=== PATIENT | male | born 1975 | race African-American/Black ===

== ENCOUNTER 2017-05-06 11:33 | Emergency (ER) | payer OTHER, MEDICAID ==
[~2017-05-06] VITALS: Ht 185.4 cm; Wt 84.4 kg
[2017-05-06] MEDS ORDERED: CYCLOBENZAPRINE10 MG PO (12:10)
[2017-05-06] MEDS ORDERED: WELLBUTRIN XL150 MG PO (12:11)
[2017-05-06] MEDS ORDERED: MEDROL4 MG PO (14:03)
[2017-05-06] MEDS ORDERED: NAPROSYN500 MG PO (14:03)
== END 2017-05-06 14:21 | disposition home or self-care (01) ==
LOC: ED 11:33
DX: M50.922 Unspecified cervical disc disorder at C5-C6 level (principal); F32.9 Major depressive disorder, single episode, unspecified; F17.200 Nicotine dependence, unspecified, uncomplicated; Z79.899 Other long term (current) drug therapy
CPT/HCPCS: 96372; 99283; J1885

== ENCOUNTER 2017-05-10 16:30 | Emergency (ER) | payer OTHER, MEDICAID ==
[~2017-05-10] VITALS: Ht 185.4 cm; Wt 84.4 kg
[~2017-05-10 16:30] MED LIST: CYCLOBENZAPRINE10 MG PO; MEDROL4 MG PO; NAPROSYN500 MG PO; WELLBUTRIN XL150 MG PO
[2017-05-10] MEDS ORDERED: ROBAXIN-750750 MG PO (17:17)
== END 2017-05-10 17:35 | disposition home or self-care (01) ==
LOC: ED 16:30
DX: S16.1XXA Strain of muscle, fascia and tendon at neck level, initial encounter (principal); F32.9 Major depressive disorder, single episode, unspecified; F17.200 Nicotine dependence, unspecified, uncomplicated; Z79.899 Other long term (current) drug therapy; X58.XXXA Exposure to other specified factors, initial encounter
CPT/HCPCS: 99283

== ENCOUNTER → 2017-12-28 | Emergency (ER) | payer MEDICAID ==
[~2017-12-28] VITALS: Ht 185.4 cm; Wt 84.4 kg
[~2017-12-28] MED LIST changes: +LIPITOR80 MG GT; +METHYLPREDNISOLO4 M1 PO; +ROBAXIN-750750 MG PO; +WELLBUTRIN XL300 MG PO
--- OUTSIDE RECORDS SUMMARY | ~2017-12-28 | XMS | Encounter Summary ---
Demographics + + + | Address | [address] | | | [place] [address] | + + + | Home Phone | | + + + | Preferred Language | Unknown | + + + | Marital Status | Single | + + + | Scientologist Affiliation | JEH | + + + | Race | Black or | + + + | Ethnic Group | Not or | + + + Author + + + | Author | [facility] | + + + | Organization | [facility] | + + + | Address | Unknown | + + + | Phone | Unavailable | + + + Support + + +---------+ + | Name | Relationship | Address | Phone | + + +---------+ + | GLADIS DESIR | ECON | Unknown | | + + +---------+ + | RenatoYanane | ECON | Unknown | | + + +---------+ + Care Team Providers + +------+ + | Care Correspondent Name | Role | Phone | + +------+ + | Ricky RiveraP | PCP | | + +------+ + Reason for Visit + + + | Reason | Comments | + + + | Appointment | | + + + | Care Coordination | | + + + Encounter Details +--------+ + + + + | Date | Type | Department | Care Team | Description | +--------+ + + + + | 10/31/ | Telephone | Family Medicine at | Ricky Rivera FNP | Appointment; Care | | 2018 | | [place] [address] | [address] | Coordination | | | [address] | [place], [place] | | | | | [place], [place] | [address] | | | | | [address] | [phone] | | | | | [phone] | | | +--------+ + + + + Social History + +-------+ +--------+------+ | Tobacco Use | Types | Packs/Day | Years | Date | | | | | Used | | + +-------+ +--------+------+ | Current Every Day | | | | | | Smoker | | | | | + +-------+ +--------+------+ + +---+---+---+ | Smokeless Tobacco: | | | | | Never Used | | | | + +---+---+---+ + + +---------+ + | Alcohol Use | Drinks/We | oz/Week | Comments | | | ek | | | + + +---------+ + | No | | | | + + +---------+ + + + + | Sex Assigned at | Date Recorded | | | | + + + | Not on file | | + + + as of this encounter Plan of Treatment Not on fileas of this encounter Visit Diagnoses Not on filein this encounter"
--- OUTSIDE RECORDS SUMMARY | ~2017-12-28 | XMS | Encounter Summary ---
Demographics + + + | Address | [address] | | | [place] [address] | + + + | Home Phone | | + + + | Preferred Language | Unknown | + + + | Marital Status | Single | + + + | Jain Affiliation | JEH | + + + | Race | Black or | + + + | Ethnic Group | Not or | + + + Author + + + | Author | [facility] | + + + | Organization | [facility] | + + + | Address | Unknown | + + + | Phone | Unavailable | + + + Support + + +---------+ + | Name | Relationship | Address | Phone | + + +---------+ + | GLADIS DESIR | ECON | Unknown | | + + +---------+ + | Ning Gross | ECON | Unknown | | + + +---------+ + Care Team Providers + +------+ + | Care Teacher Resource Name | Role | Phone | + +------+ + | Ricky RiveraP | PCP | | + +------+ + Encounter Details +--------+ + + + + | Date | Type | Department | Care Team | Description | +--------+ + + + + | 10/18/ | Procedure | Diagnostic Imaging | | | | 2018 | Pass | Services at [facility] | | | | | | [address] [facility] | | | | | | [facility] | | | | | | Mailcode: [address] | | | | | | [facility] | | | | | | [place], [place] | | | | | | [address] | | | | | | [phone] | | | +--------+ + + + [...]
--- OUTSIDE RECORDS SUMMARY | ~2017-12-28 | XMS | Encounter Summary ---
Demographics + + + | Address | [address] | | | [place] [address] | + + + | Home Phone | | + + + | Preferred Language | Unknown | + + + | Marital Status | Single | + + + | Rastafari Affiliation | JEH | + + + | Race | Black or | + + + | Ethnic Group | Not or | + + + Author + + + | Author | [facility] [employer] | + + + | Organization | [facility] | + + + | Address [...] Team Providers + +------+ + | Care Sock Liner Name | Role | Phone | + +------+ + | Ricky Rivera | PCP | | + +------+ + Encounter Details +--------+ + + + + | Date | Type | Department | Care Team | Description | +--------+ + + + + | 09/30/ | Pharmacy | [facility] - [facility] | | | | 2017 | Visit | Medicine at [place] | | | | | | [address] | | | | | | [place], [place] | | | | | | [address] | | | | | | [phone] | | | +--------+ + + + [...]
--- OUTSIDE RECORDS SUMMARY | ~2017-12-28 | XMS | Clinical Summary ---
Demographics + + + | Address | [address] | | | [place], [place] [address] | + + + | Home Phone | | + + + | Preferred Language | Unknown | + + + | Marital Status | Single | + + + | Methodist Affiliation | JEH | + + + | Race | Black or | + + + | Ethnic Group | Not or | + + + Author + + + | Author | [facility] | + + + | Organization | [facility] | + + + | Address | Unknown | + + + | Phone | Unavailable | + + + Support + + +---------+ + | Name | Relationship | Address | Phone | + + +---------+ + | GLADIS DESIR | ECON | Unknown | | + + +---------+ + | Ning Cardenas | ECON | Unknown | | + + +---------+ + Care Team Providers + +------+ + | Care Lab Associate Name | Role | Phone | + +------+ + | Ricky Rivera SENIOR ACCOUNTANT CPA | PP | | + +------+ + Source Comments JOSE is fully live on both [facility] and [facility] InPatient.[facility] Allergies No Known Allergies Current Medications + + +---------+---------+------+------+-------+ | Prescription | Sig. | Disp. | Refills | Star | End | Statu | | | | | | t | Date | s | | | | | | Date | | | + + +---------+---------+------+------+-------+ | cyclobenzaprine 10 | Take by mouth. | | | 06/ | | Activ | | mg oral tablet | | | | 0/20 | | e | | | | | | 17 | | | + + +---------+---------+------+------+-------+ | naproxen 500 mg | take 1 tablet by | | | 03/2 | | Activ | | oral tablet | mouth twice a day | | | 04/13 | | e | | | | | | 18 | | | + + +---------+---------+------+------+-------+ | traMADol 50 mg | take 1 tablet by | | | 03/ | | Activ | | oral tablet | mouth every 6 hours | | | 6 | | e | | | if needed for pain | | | 18 | | | + + +---------+---------+------+------+-------+ | atorvastatin 20 mg | Take by mouth. | | | 02/2 | | Activ | | oral tablet | | | | 20 | | e | | | | | | 18 | | | + + +---------+---------+------+------+-------+ | gabapentin 300 mg | Take 1 capsule by | 30 | 0 | 04/0 | | Activ | | oral capsule | mouth three times | capsule | | 1/20 | | e | | | daily. | | | 18 | | | + + +---------+---------+------+------+-------+ | methocarbamol 500 | Take 1 tablet by | 120 | 1 | 06/1 | | Activ | | mg oral tablet | mouth four times | tablet | | 4/20 | | e | | | daily. | | | 18 | | | + + +---------+---------+------+------+-------+ | atorvastatin 20 mg | Take 1 tablet by | 30 | 0 | 06/1 | | Activ | | oral tablet | mouth once daily. | tablet | | 4/20 | | e | | | | | | 18 | | | + + +---------+---------+------+------+-------+ | buPROPion XL 150 | Take 1 tablet by | 30 | 3 | 06/1 | | Activ | | mg oral tablet | mouth once daily. | tablet | | 4/20 | | e | | extended release 24 | | | | 18 | | | | hr | | | | | | | + + +---------+---------+------+------+-------+ | docusate sodium | Take 1 capsule by | 30 | 1 | 06/2 | | Activ | | 250 mg oral capsule | mouth once daily. | capsule | | 8/20 | | e | | | | | | 18 | | | + + +---------+---------+------+------+-------+ | | Take 1 tablet by | 12 | 0 | 07/0 | | Activ | | oxyCODONE-acetaminop | mouth every four to | tablet | | 9/20 | | e | | hen (PERCOCET) 5-325 | six hours as needed | | | 18 | | | | mg oral tablet | for pain. | | | | | | + + +---------+---------+------+------+-------+ Active Problems + + + | Problem | Noted Date | + + + | Chronic cervical pain | 08/09/2017 | + + + | Chronic thoracic spine pain | 08/09/2017 | + + + Encounters +--------+ + + + + | Date | Type | Specialty | Care Team | Description | +--------+ + + + + | 10/31/ | Telephone | | Ricky Rivera FNP | Appointment; Care | | 2017 | | | | Coordination | +--------+ + + + + | 10/23/ | Hospital | | Ricky Rivera FNP | | | 2017 | Encounter | | | | +--------+ + + + + | 10/18/ | Procedure | | | | | 2018 | Pass | | | | +--------+ + + + + | 10/18/ | Ancillary | | Ricky Rivera FNP | | | 2018 | Orders | | | | +--------+ + + + + | 09/30/ | Pharmacy | | | | | 2017 | Visit | | | | +--------+ + + + + from Last 3 Months Social History + +-------+ +--------+------+ | Tobacco [...] on file | | + + + Last Filed Vital Signs + + + + | Vital Sign | Reading | Time Taken | + + + + | Blood Pressure | 119/72 | 06/23/2017 6:09 AM PDT | + + + + | Pulse | 120 | 06/23/2017 3:04 AM PDT | + + + + | Temperature | 37.1 C (98.8 F) | 06/23/2017 3:04 AM PDT | + + + + | Respiratory Rate | 18 | 06/23/2017 6:09 AM PDT | + + + + | Oxygen Saturation | 97% | 06/23/2017 6:09 AM PDT | + + + + | Inhaled Oxygen | - | - | | Concentration | | | + + + + | Weight | - | - | + + + + | Height | - | - | + + + + | Body Mass Index | - | - | + + + + Plan of Treatment + + + + + | Health Maintenance | Due Date | Last Done | Comments | + + + + + | DEPRESSION SCREEN | | | | | | 4 | | | + + + + + | RELATIONSHIP SAFETY | | | | | SCREENING | 4 | | | + + + + + | SUBSTANCE ABUSE | | | | | SCREENING | 6 | | | + + + + + | Diphtheria,Tetanus,P | | | | | ertussis | 3 | | | | (DTaP/Tdap/Td) (1 - | | | | | Tdap) | | | | + + + + + | Pneumococcal (Adult) | | | | | (1 of 1 - PPSV23) | 3 | | | + + + + + | INFLUENZA VACCINE | | | | | (FLU SHOT) | 8 | | | + + + + + | TOBACCO CESSATION | | 09/05/2017 | | | INTERVENTION | 9 | | | + + + + + | CHOLESTEROL | | 07/17/2017 | | | SCREENING | 3 | | | + + + + + | HIV SCREEN | Completed | 07/17/2017 | | + + + + + Procedures + +--------+ + + + | Procedure Name | Priori | Date/Time | Associated Diagnosis | Comments | | | ty | | | | + +--------+ + + + | MRI SPINE THORACIC | Routin | 10/23/2017 | Pain in thoracic | Results for this | | WO LUIS | e | 12:54 PM | spine | procedure are in the | | | | PDT | | results section. | + +--------+ + + + from Last 3 Months Results MRI SPINE THORACIC WO CONTRAST (10/23/2017 12:54 PM) + + + | Narrative | Performed At | + + + | MRI THORACIC SPINE WITHOUT CONTRAST HISTORY: 42-year-old male | [facility] | | with history of chronic neck pain and upper thoracic strain reported. | RADIOLOGY VOICE | | Hx of reported injury to thoracic spine with radiculopathy | RECOGNITION 2 | | COMPARISON: None. TECHNIQUE: Multiplanar multi-sequence MRI | | | thoracic spine without contrast FINDINGS: ALIGNMENT: There is | | | no significant jhoan or retrolisthesis. MARROW: Unremarkable. | | | SPINAL CORD: No abnormal cord signal is seen. VERTEBRAE: There is | | | minimal loss of intervertebral disc height. There is no significant | | | central canal stenosis or neural foraminal narrowing of the visualized | | | thoracic levels. A left paracentral C7-T1 disc ridge and | | | uncovertebral arthropathy on the left are noted. Trace right T4-5 | | | lateral recess zone protrusion without significant stenosis. | | | PARASPINAL SOFT TISSUES: Unremarkable. IMPRESSION: Essentially | | | normal appearance of thoracic spine. C6-7 level left paracentral disc | | | ridge noted. I have personally reviewed the images and, if | | | necessary, edited the report. I agree with the report as now | | | presented. Final signature: Jostin Garzon MD 10/23/2017 | | | 5:38 PM Preliminary: Viji Meza MD 10/23/2017 4:34 PM | | | Dictation initiated: Viji Meza MD 10/23/2017 1:25 PM | | + + + + + | Procedure Note | + + | Service Account, Radiant Res In Interface - 10/23/2017 5:39 PM PDT MRI THORACIC | | SPINE WITHOUT CONTRAST HISTORY: 42-year-old male with history of chronic neck pain and | | upper thoracic strain reported. Hx of reported injury to thoracic spine with | | radiculopathy COMPARISON: None. TECHNIQUE: Multiplanar multi-sequence MRI thoracic | | spine without contrast FINDINGS: ALIGNMENT: There is no significant jhoan or | | retrolisthesis.MARROW: Unremarkable.SPINAL CORD: No abnormal cord signal is | | seen.VERTEBRAE: There is minimal loss of intervertebral disc height. There is no | | significant central canal stenosis or neural foraminal narrowing of the visualized | | thoracic levels.A left paracentral C7-T1 disc ridge and uncovertebral arthropathy on the | | left are noted. Trace right T4-5 lateral recess zone protrusion without significant | | stenosis.PARASPINAL SOFT TISSUES: Unremarkable. IMPRESSION: Essentially normal | | appearance of thoracic spine. C6-7 level left paracentral disc ridge noted. I have | | personally reviewed the images and, if necessary, edited the report. I agree with the | | report as now presented. Final signature: Jostin Garzon MD 10/23/2017 5:38 PM | | Preliminary: Viji Meza MD 10/23/2017 4:34 PM Dictation initiated: Viji Meza MD | | 10/23/2017 1:25 PM | | | |IMPRESSION: | | | |Essentially normal appearance of thoracic spine. C6-7 level left paracentral disc ridge not ed. | | | |I have personally reviewed the images and, if necessary, edited the report. I agree with th e report as now presented. | | | |Final signature: Jostin Garzon MD 10/23/2017 5:38 PM | |Preliminary: Viji Meza MD 10/23/2017 4:34 PM | |Dictation initiated: Viji Meza MD 10/23/2017 1:25 PM | + + + +---------+ + + | Performing | Address | City/State/Zipcode | Phone Number | | Organization | | | | + +---------+ + + | [facility] | | | | | VOICE RECOGNITION 2 | | | | + +---------+ + + from Last 3 Months Insurance + +--------+ +--------+-------+---------+ | Payer | Benefi | Subscriber | Type | Phone | Address | | | t Plan | ID | | | | | | / | | | | | | | Group | | | | | + +--------+ +--------+-------+---------+ | CORPORATE QUALITY ENGINEER MEDICAID | CORPORATE QUALITY ENGINEER | xxxxxxxx | Medica | | | | | CAREOR | | id | | | | | | | | | | | | HEALTH | | | | | | | SHARE | | | | | + +--------+ +--------+-------+---------+ + +--------+ +--------+ + + | Guarantor Name | Accoun | Relation to | Date | Phone | Billing Address | | | t Type | Patient | of | | | | | | | | | | + +--------+ +--------+ + + | TAYLOR CARDENAS | Person | Self [birth year] | Home: | [address] | | | al/Fam | | 1975 | [phone] | [place] [address] | | | cynthia | | | [phone] | | + +--------+ +--------+ + +"
--- OUTSIDE RECORDS SUMMARY | ~2017-12-28 | XMS | Encounter Summary ---
Demographics + + + | Address | [address] | | | [place] [address] | + + + | Home Phone | | + + + | Preferred Language | Unknown | + + + | Marital Status | Single | + + + | Adventist Affiliation | JEH | + + + | Race | Black or | + + + | Ethnic Group | Not or | + + + Author + + + | Author | [facility] [employer] [facility] | + + + | Organization | [facility] [facility] | + + + | Address | [...] Team Providers + +------+ + | Care Experimental Mechanic Name | Role | Phone | + +------+ + | Ricky RiveraP | PCP | | + +------+ + Encounter Details +--------+ + + + + | Date | Type | Department | Care Team | Description | +--------+ + + + + | 10/18/ | Procedure | Diagnostic Imaging | | | | 2018 | Pass | Services at [facility] | | | | | | [address] [facility] | | | | | | [facility] | | | | | | Mail[address]: [address] | | | | | | [facility] | | | | | | [place], [place] | | | | | | [address] | | | | | | [phone] | | | +--------+ + + + [...]
--- OUTSIDE RECORDS SUMMARY | ~2017-12-28 | XMS | Encounter Summary ---
Demographics + + + | Address | [address] | | | [place] [address] | + + + | Home Phone | | + + + | Preferred Language | Unknown | + + + | Marital Status | Single | + + + | Muslim Affiliation | JEH | + + + | Race | Black or | + + + | Ethnic Group | Not or | + + + Author + + + | Author | [facility] | + + + | Organization | [facility] | + + + | Address [...] Team Providers + +------+ + | Care Sprayer Hand Name | Role | Phone | + +------+ + | Ricky Rivera | PCP | | + +------+ + Encounter Details +--------+ + + + + | Date | Type | Department | Care Team | Description | +--------+ + + + + | 09/30/ | Pharmacy | [facility] - [facility] | | | | 2017 | Visit | Medicine at [place] | | | | | | [address] | | | | | | [place], [place] | | | | | | [address] | | | | | | [phone] | | | +--------+ + + + [...]
--- OUTSIDE RECORDS SUMMARY | ~2017-12-28 | XMS | Encounter Summary ---
Demographics + + + | Address | [address] | | | [place] [address] | + + + | Home Phone [...] Author + + + | Author | [facility] [employer] [facility] | + + + | Organization | [facility] [email or web address] [facility] | + + + | Address [...] Team Providers + +------+ + | Care Poultry Hatchery Laborer Name | Role | Phone | + +------+ + | Ricky Rivera END USER CONSULTANT | PCP | | + +------+ + Reason for Referral Diagnostic Testing (Routine) +--------+--------+ + + + + | Status | Reason | Specialty | Diagnoses / | Referred By | Referred To | | | | | Procedures | Contact | Contact | +--------+--------+ + + + + | Closed | | Radiology | Diagnoses | Ricky Rivera | [facility] | | | | | Pain in | H, END USER CONSULTANT [address] | [address] | | | | | thoracic | [address] | [address] | | | | | spine | [address] | | | | | Procedures | [place], [place] | Mailcode: | | | | | MRI SPINE | [id number] | [address] | | | | | THORACIC WO | Phone: | [place] | | | | | CONTRAST | [phone] | Research | | | | | | Fax: | Center | | | | | | [phone] | [place], [place] | | | | | | | [address] | | | | | | | Phone: | | | | | | | [phone] | | | | | | | Fax: | | | | | | | [phone] | +--------+--------+ + + + + Diagnostic Testing (Routine) +--------+--------+ + + + + | Status | Reason | Specialty | Diagnoses / | Referred By | Referred To | | | | | Procedures | Contact | Contact | +--------+--------+ + + + + | Closed | | Radiology | Diagnoses | Rivera, Toy | [facility] | | | | | Pain in | H, END USER CONSULTANT [address] | [address] | | | | | thoracic | [address] | [address] | | | | | spine | [address] | [address] | | | | | Procedures | [place], [place] | Mailcode: | | | | | MRI SPINE | [id number] | [address] | | | | | THORACIC WO | Phone: | [place] | | | | | CONTRAST | [phone] | Research | | | | | | Fax: | [place] | | | | | | [phone] | [place], [place] | | | | | | | [address] | | | | | | | Phone: | | | | | | | [phone] | | | | | | | Fax: | | | | | | | [phone] | +--------+--------+ + + + + Reason for Visit Diagnostic Testing (Routine) +--------+--------+ + + + + | Status | Reason | Specialty | Diagnoses / | Referred By | Referred To | | | | | Procedures | Contact | Contact | +--------+--------+ + + + + | Closed | | Radiology | Diagnoses | Rivera, Toy | [facility] | | | | | Pain in | H, END USER CONSULTANT [address] | [address] | | | | | thoracic | [address] | [address] | | | | | spine | [address] | | | | | Procedures | [place], [place] | Mailcode: | | | | | MRI SPINE | [address] | [address] | | | | | THORACIC WO | Phone: | [place] | | | | | CONTRAST | [phone] | Research | | | | | | Fax: | [place] | | | | | | [phone] | [place], [place] | | | | | | | [address] | | | | | | | Phone: | | | | | | | [phone] | | | | | | | Fax: | | | | | | | [phone] | +--------+--------+ + + + + Encounter Details +--------+ + + + + | Date | Type | Department | Care Team | Description | +--------+ + + + + | 10/23/ | Hospital | Diagnostic Imaging | Ricky Rivera, TINA | | | 2018 | Encounter | Services at [facility] | [address] | | | | | [address] [facility] | [place], [place] | | | | | [facility] | [address] | | | | | Mail[address]: [address] | [phone] | | | | | [place] [facility] | | | | | | Center [place], [place] | | | | | | [address] | | | | | | [phone] | | | +--------+ + + + [...] + + + as of this encounter Medications at Time of Discharge + + +---------+---------+ + + | Medication | Sig. | Disp. | Refills | Start | End Date | | | | | | Date | | + + +---------+---------+ + + | atorvastatin 20 mg | Take 1 tablet by | 30 | 0 | 09/06/19 | | | oral tablet | mouth once daily. | tablet | | 18 | | + + +---------+---------+ + + | atorvastatin 20 mg | Take by mouth. | | | 05/19/19 | | | oral tablet | | | | 18 | | + + +---------+---------+ + + | buPROPion XL 150 | Take 1 tablet by | 30 | 3 | 09/06/19 | | | mg oral tablet | mouth once daily. | tablet | | 18 | | | extended release 24 | | | | | | | hr | | | | | | + + +---------+---------+ + + | cyclobenzaprine 10 | Take by mouth. | | | 09/02/19 | | | mg oral tablet | | | | 17 | | + + +---------+---------+ + + | docusate sodium | Take 1 capsule by | 30 | 1 | 09/20/19 | | | 250 mg oral capsule | mouth once daily. | capsule | | 18 | | + + +---------+---------+ + + | gabapentin 300 mg | Take 1 capsule by | 30 | 0 | 06/24/19 | | | oral capsule | mouth three times | capsule | | 18 | | | | daily. | | | | | + + +---------+---------+ + + | methocarbamol 500 | Take 1 tablet by | 120 | 1 | 09/06/19 | | | mg oral tablet | mouth four times | tablet | | 18 | | | | daily. | | | | | + + +---------+---------+ + + | naproxen 500 mg | take 1 tablet by | | | 06/13/19 | | | oral tablet | mouth twice a day | | | 18 | | + + +---------+---------+ + + | | Take 1 tablet by | 12 | 0 | 10/01/19 | | | oxyCODONE-acetaminop | mouth every four to | tablet | | 18 | | | hen (PERCOCET) 5-325 | six hours as needed | | | | | | mg oral tablet | for pain. | | | | | + + +---------+---------+ + + | traMADol 50 mg | take 1 tablet by | | | 06/08/19 | | | oral tablet | mouth every 6 hours | | | 18 | | | | if needed for pain | | | | | + + +---------+---------+ + + as of this encounter Plan of Treatment Not on fileas of this encounter Procedures + +--------+ + + + | [...] section. | + +--------+ + + + in this encounter Results MRI SPINE THORACIC WO CONTRAST (10/23/2017 [...] Note | + + | Service Account, Cequel Data Res In Interface - 10/23/2017 5:39 PM [...] | | | + +---------+ + + in this encounter Visit Diagnoses + + | Diagnosis | + + | Pain in thoracic spine | + +"
--- OUTSIDE RECORDS SUMMARY | ~2017-12-28 | XMS | Clinical Summary ---
Demographics + + + | Address | [address] | | | [place], [place] [address] | + + + | Home Phone | | + + + | Preferred Language | Unknown | + + + | Marital Status | Single | + + + | Oriental Orthodox Affiliation | JEH | + + + [...] Team Providers + +------+ + | Care Refractory Repairer Name | Role | Phone | + +------+ + | Ricky Rivera NUCLEAR PLANT EQUIPMENT OPERATOR | PP | | + +------+ + Source Comments JOSE is fully live on both [facility] Ambulatory and [facility] InPatient.[facility] Allergies No Known Allergies Current Medications + [...] | | | + +--------+ +--------+-------+---------+ | BOOKING SUPERVISOR MEDICAID | BOOKING SUPERVISOR | xxxxxxxx | Medica | | | [...] | | al/Fam | | 1975 | [phone] | [place] [address] | | | cynthia | | | [phone] | | + +--------+ +--------+ + +"
--- OUTSIDE RECORDS SUMMARY | ~2017-12-28 | XMS | Encounter Summary ---
Demographics + + + | Address | [address] | | | [place] [address] | + + + | Home Phone | | + + + | Preferred Language | Unknown | + + + | Marital Status | Single | + + + | Gnosticism Affiliation | JEH | + + + | Race | Black or | + + + | Ethnic Group | Not or | + + + Author + + + | Author | [facility] | + + + | Organization | [facility] | + + + | Address [...] Team Providers + +------+ + | Care Entry Level Software Developer Name | Role | Phone | + +------+ + | Ricky Rivera DUPLEX TRIMMER | PCP | | + +------+ + [...] | | | Pain in | H, [address] | [address] | | | | | thoracic | [address] | [address] | | | | | spine | [address] | | | | | Procedures | [place], [place] | Mailcode: | | | | | MRI SPINE | [id number] | [address] | | | | | THORACIC WO | Phone: | [place] | | | | | CONTRAST | [phone] | Research | | | | | | Fax: | [place] | | | | | | [phone] | [place], [place] | | | | | | | [address] | | | | | | | Phone: | | | | | | | [phone] | | | | | | | Fax: | | | | | | | [phone] | +--------+--------+ + + + + Encounter Details +--------+ + + + + | Date | Type | Department | Care Team | Description | +--------+ + + + + | 10/18/ | Ancillary | Diagnostic Imaging | Ricky Rivera, DUPLEX TRIMMER | | | 2018 | Orders | Services [address] | [address] | | | | | [address] [place] | [place], [place] | | | | | Road [facility] [place] | [address] | | | | | [address] | [phone] | | | | | | | | +--------+ + + [...] Treatment Not on fileas of this encounter Results MRI SPINE THORACIC WO [...]
--- OUTSIDE RECORDS SUMMARY | ~2017-12-28 | XMS | Encounter Summary ---
Demographics + + + | Address | [address] | | | [place] [address] | + + + | Home Phone | | + + + | Preferred Language | Unknown | + + + | Marital Status | Single | + + + | Orthodoxy Affiliation | JEH | + + + | Race | Black or | + + + | Ethnic Group | Not or | + + + Author + + + | Author | [facility] | + + + | Organization | [facility] | + + + | [...] Team Providers + +------+ + | Care Ethanol Maintenance Mechanic Name | Role | Phone | + +------+ + | Ricky Rivera JOURNEY LINEMAN | PCP | | + +------+ + [...] | | | Pain in | H, [address] | [address] | | | | | thoracic | [address] | [address] | | | | | spine | [address] | [address] | | | | | Procedures | [place], [place] | Mailcode: | | | | | MRI SPINE | [id number] | [address] | | | | | THORACIC WO | Phone: | [place] | | | | | CONTRAST | [phone] | Research | | | | | | Fax: | Center | | | | | | [phone] | [place], [place] | | | | | | | [address] | | | | | | | Phone: | | | | | | | [phone] | | | | | | | Fax: | | | | | | | [phone] | +--------+--------+ + + + + Diagnostic [...] | | | Pain in | H, [address] | [address] | | | | | thoracic | [address] | [address] | | | | | spine | St [address] | | | | | Procedures | [place], [place] | Mailcode: | | | | | MRI SPINE | [id number] | [address] | | | | | THORACIC WO | Phone: | [place] | | | | | CONTRAST | [phone] | Research | | | | | | Fax: | [place] | | | | | | [phone] | [place], [place] | | | | | | | [address] | | | | | | | Phone: | | | | | | | [phone] | | | | | | | Fax: | | | | | | | [phone] | +--------+--------+ + + + + Reason [...] | | | Pain in | H, [address] | [address] | | | | | thoracic | [address] | [address] | | | | | spine | St [address] | | | | | Procedures | [place], [place] | Mailcode: | | | | | MRI SPINE | [id number] | [address] | | | | | THORACIC WO | Phone: | [place] | | | | | CONTRAST | [phone] | Research | | | | | | Fax: | [place] | | | | | | [phone] | [place], [place] | | | | | | | [address] | | | | | | | Phone: | | | | | | | [phone] | | | | | | | Fax: | | | | | | | [phone] | +--------+--------+ + + + + Encounter Details +--------+ + + + + | Date | Type | Department | Care Team | Description | +--------+ + + + + | 10/23/ | Hospital | Diagnostic Imaging | Ricky Rivera, TINA | | | 2018 | Encounter | Services at [facility] | [address] | | | | | [address] [facility] | [place], [place] | | | | | [facility] | [address] | | | | | Mailcode: [address] | [phone] | | | | | [place] [facility] | | | | | | Center [place], [place] | | | | | | [address] | | | | | | [phone] | | | +--------+ + + + [...] Note | + + | Service Account, [employer] Res In Interface - 10/23/2017 5:39 PM [...]
--- OUTSIDE RECORDS SUMMARY | ~2017-12-28 | XMS | Encounter Summary ---
Demographics + + + | Address | [address] | | | [place] [address] | + + + | Home Phone | | + + + | Preferred Language | Unknown | + + + | Marital Status | Single | + + + | Rastafarian Affiliation | JEH | + + + | Race | Black or | + + + | Ethnic Group | Not or | + + + Author + + + | Author | [facility] | + + + | Organization | [facility] | + + + | Address [...] Team Providers + +------+ + | Care Electronic Tech Name | Role | Phone | + [...] | | | [address] | [place], [place] | | | | | [place], [place] | [address] | | | | | [address] | [phone] | | | | | [phone] | | | +--------+ + + + [...]
--- OUTSIDE RECORDS SUMMARY | ~2017-12-28 | XMS | Encounter Summary ---
Demographics + + + | Address | [address] | | | [place] [address] | + + + | Home Phone | | + + + | Preferred Language | Unknown | + + + | Marital Status | Single | + + + | Alevism Affiliation | JEH | + + + | Race | Black or | + + + | Ethnic Group | Not or | + + + Author + + + | Author | [facility] | + + + | Organization | [facility] | + + + | Address [...] Team Providers + +------+ + | Care Materials Handling Coordinator Name | Role | Phone | + +------+ + | Ricky Rivera PRODUCT STEWARD | PCP | | + +------+ + [...] | | | Pain in | H, [address] | [address] | | | | | thoracic | [address] | [address] | | | | | spine | St [address] | | | | | Procedures | [place], [place] | Mailcode: | | | | | MRI SPINE | [id number] | [address] | | | | | THORACIC WO | Phone: | [place] | | | | | CONTRAST | [phone] | Research | | | | | | Fax: | [place] | | | | | | [phone] | [place], [place] | | | | | | | [address] | | | | | | | Phone: | | | | | | | [phone] | | | | | | | Fax: | | | | | | | [phone] | +--------+--------+ + + + + Encounter Details +--------+ + + + + | Date | Type | Department | Care Team | Description | +--------+ + + + + | 10/18/ | Ancillary | Diagnostic Imaging | Ricky Rivera, PRODUCT STEWARD | | | 2018 | Orders | Services [address] | [address] | | | | | [address] [place] | [place], [place] | | | | | Road [facility] [place] | [address] | | | | | [address] | [phone] | | | | | | | [...]
== END ==
LOC: ED 12:10
DX: M54.12 Radiculopathy, cervical region (principal); F32.9 Major depressive disorder, single episode, unspecified; F17.200 Nicotine dependence, unspecified, uncomplicated; Z79.899 Other long term (current) drug therapy
CPT/HCPCS: 99283

== ENCOUNTER 2018-07-11 20:45 | Emergency (ER) | payer MEDICAID ==
[~2018-07-11] VITALS: Ht 182.9 cm; Wt 86.2 kg
[~2018-07-11 20:45] MED LIST changes: +NEURONTIN300 MG PO; +NORCO 5-325 TA1 EACH PO
[2018-07-11] MEDS ORDERED: CYCLOBENZAPRINE10 MG PO (22:27)
[2018-07-11] MEDS ORDERED: NAPROXEN500 MG PO (22:27)
== END 2018-07-11 22:54 | disposition home or self-care (01) ==
LOC: ED 20:45
DX: S91.041A Puncture wound with foreign body, right ankle, initial encounter (principal); S60.221A Contusion of right hand, initial encounter; G89.29 Other chronic pain; M54.6 Pain in thoracic spine; F32.9 Major depressive disorder, single episode, unspecified; F17.200 Nicotine dependence, unspecified, uncomplicated; Z79.899 Other long term (current) drug therapy; W34.010A Accidental discharge of airgun, initial encounter; W22.01XA Walked into wall, initial encounter
CPT/HCPCS: 73130; 73610; 99283-25

== ENCOUNTER 2018-07-24 14:34 | Emergency (ER) | payer MEDICAID ==
[~2018-07-24] VITALS: Ht 182.9 cm; Wt 86.2 kg
[~2018-07-24 14:34] MED LIST changes: +NAPROXEN500 MG PO
[2018-07-24] MEDS ORDERED: PREDNISONE20 MG PO (16:23)
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
== END 2018-07-24 16:40 | disposition home or self-care (01) ==
LOC: ED 14:34
DX: S63.641A Sprain of metacarpophalangeal joint of right thumb, initial encounter (principal); M19.031 Primary osteoarthritis, right wrist; W22.8XXA Striking against or struck by other objects, initial encounter; F32.9 Major depressive disorder, single episode, unspecified; F17.200 Nicotine dependence, unspecified, uncomplicated; Z79.899 Other long term (current) drug therapy
CPT/HCPCS: 29125; 73110; 73130; 99283-25; 99406; J7512